=== PATIENT | male | born 1960 | race Caucasian/White ===

== ENCOUNTER → 2024-09-26 13:50 | Outpatient (REF) | payer OTHER, SELFPAY | LOC: RAD 13:50 | PROVIDERS: ATTENDING PHYSICIAN Specialist; FAMILY PHYSICIAN Family Medicine | DX: K90.0 Celiac disease (principal) | CPT/HCPCS: 77080 ==

== ENCOUNTER 2024-11-08 06:33 | Day surgery (SDC) | payer OTHER, SELFPAY | END 2024-11-08 13:50 | disposition home or self-care (01) | LOC: GI 06:33 | PROVIDERS: ATTENDING PHYSICIAN Specialist | DX: K22.70 Barrett's esophagus without dysplasia (principal); K22.89 Other specified disease of esophagus; K90.0 Celiac disease; K21.00 Gastro-esophageal reflux disease with esophagitis, without bleeding | CPT/HCPCS: 43239; 88305 ==